=== PATIENT | male | born 1975 | race Caucasian/White ===

== ENCOUNTER 2019-07-15 16:06 | Emergency (ER) | payer MEDICAID ==
[~2019-07-15] VITALS: Ht 188 cm; Wt 90.7 kg
[2019-07-15] MEDS ORDERED: HYDROcodone/Acetamin 5/325 tab ORAL ONE (16:30)
--- NOTE | 2019-07-15 16:52 | Diagnostic Imaging Report ---
Indication: Left ankle pain Technique: 3 views of the left ankle Comparison: none Findings: No acute fractures. No dislocations. The joint spaces are preserved Impression: Negative
--- NOTE | 2019-07-15 16:53 | Emergency Room Report ---
History of Present Illness General Chief Complaint: Lower Extremity Injury Source: Patient Present Illness HPI 44-year-old male presents to the emergency department complaining of 10 out of 10 severity acute pain, swelling and tenderness that is localized to the lateral aspect of the left ankle and foot since yesterday. Patient reports mechanical trip and fall. He denies hitting his head or having a loss of consciousness. Patient describes hyperflexion and inversion mechanism. He reports he is been keeping it elevated and constant application of ice but continues to have some swelling. Patient states he is unable to bear weight. Patient reports paresthesias to the lateral aspect of the foot from mid wan down. Patient reports having normal sensation to the medial aspect of the left calf and foot. Denies open wounds or bleeding. Pt. denies bruising at this time. Allergies: Coded Allergies: No Known Allergies (Unverified , 07/15/19) COVID-19 Screening Contact w/high risk pt: No Recent Travel to affected area: No Experienced COVID-19 symptoms?: No COVID-19 Testing performed TACTICAL/MOBILE WATCH OFFICER: No Patient History Past Medical History: see triage record Past Surgical History: none Pertinent Family History: none Reviewed Nursing Documentation: PMH: Agreed; PSxH: Agreed Nursing Documentation-PMH Past Medical History: No History, Except For Review of Systems All Other Systems: negative except mentioned in HPI Physical Exam Vital Signs Date Time Temp Pulse Resp B/P (MAP) Pulse Ox O2 Delivery O2 Flow Rate FiO2 07/15/19 16:12 98.1 94 16 126/81 (96) 97 Room Air Sp02 EP Interpretation: reviewed, normal General Appearance: no apparent distress, alert, GCS 15, non-toxic Head: normocephalic, atraumatic Eyes: bilateral eye normal inspection, bilateral eye PERRL ENT: hearing grossly normal, normal voice Neck: full range of motion Respiratory: lungs clear, normal breath sounds, speaking full sentences Cardiovascular #1: regular rate, rhythm, normal capillary refill Cardiovascular #2: 2+ dorsalis pedis (R), 2+ dorsalis pedis (L) Musculoskeletal: tender - Lateral aspect of the left ankle, lateral dorsal left foot ttp & swelling. , swelling - lateral aspect of the left ankle/ dorsal proximal foot. , other - unable to bear weight. Neurologic: alert, motor strength/tone normal, oriented x3, sensory intact, responsive, speech normal, grossly normal, other - Pt. reports paresthesia sensations from mid left wan to the lateral 3-5th digits. Normal sensation medially. Psychiatric: judgement/insight normal Skin: no rash, normal color Medical Decision Making KELLI Attestation Dr. Samayoa is my supervising Physician whom patient management has been discussed with. Diagnostic Impression: Primary Impression: Moderate left ankle sprain Qualified Codes: S93.402A - Sprain of unspecified ligament of left ankle, initial encounter ER Course 44-year-old male presents to the emergency department complaining of 10 out of 10 severity acute pain, swelling and tenderness that is localized to the lateral aspect of the left ankle and foot since yesterday. Patient reports mechanical trip and fall. He denies hitting his head or having a loss of consciousness. Patient describes hyperflexion and inversion mechanism. He reports he is been keeping it elevated and constant application of ice but continues to have some swelling. Patient states he is unable to bear weight. Patient reports paresthesias to the lateral aspect of the foot from mid wan down. Patient reports having normal sensation to the medial aspect of the left calf and foot. Denies open wounds or bleeding. Pt. denies bruising at this time. Ddx considered but are not limited to Fracture, dislocation, contusion, Sprain/ Strain/Spasm, ligamental tear just to name a few. Vital signs: are WNL, pt. is afebrile H&PE are most consistent with musculoskeletal injury will perform imaging to r/ o fractures/dislocations. ORDERS: - X-ray Left Ankle and foot 3 views each - negative for fx, Dislocation, or significant soft tissue injury, per preliminary read in ED, and signed by KELLI Alex, my supervising physician has reviewed, and agrees with my interpretation. ED INTERVENTIONS: - [place] PO - Left Ankle short leg posterior splint applied by denture technician. Pt. remains neurovascularly intact. DISCHARGE: At this time pt. is stable for d/c to home. Will provide printed patient care instructions, and any necessary prescriptions. Care plan and follow up instructions have been discussed with the patient prior to discharge. Other X-Ray Diagnostic Results Other X-Ray Diagnostic Results #1: X-Ray ordered: left ankle # of Views/Limited Vs Complete: 3 View Indication: Pain EP Interpretation: Yes KELLI Xray: Interpretation reviewed, by supervising MD, and agrees with findings. Interpretation: no dislocation, no fractures, other - ST swelling Impression: Other - abnormal - ST swelling Electronically Signed by: Brittanie Alex PA-C Other X-Ray Diagnostic Results #2: X-Ray ordered: Left Foot # of Views/Limited Vs Complete: 3 View Indication: Pain EP Interpretation: Yes PA Xray: Interpretation reviewed, by supervising MD, and agrees with findings. Interpretation: no dislocation, no soft tissue swelling, no fractures Impression: No acute disease Electronically Signed by: Brittanie Alex PA-C Last Vital Signs Date Time Temp Pulse Resp B/P (MAP) Pulse Ox O2 Delivery O2 Flow Rate FiO2 07/15/19 16:12 98.1 94 16 126/81 (96) 97 Room Air Status: improved Disposition: HOME, SELF-CARE Condition: Stable Referrals: Orthopedic Urgent Care Patient Instructions: Ankle Sprain Additional Instructions: Take medications as directed. Follow up with an CORK PAINTER AND GRADER in 3-5 days, even if your symptoms have resolved. If symptoms persist MRI may be required at the discretion of your PCP or Ortho Specialist. --Please review list of primary care clinics, if you do not already have a primary care provider who can give you an Orthopedic Referral. Return sooner to ED if new symptoms occur, or current symptoms become worse. Do not drink alcohol, drive, or operate heavy machinery while taking [place] as this may cause drowsiness. - Please note that this Emergency Department Report was dictated using Snapflow[employer] scheduler technology software, occasionally this can lead to erroneous entry secondary to interpretation by the dictation equipment. Brittanie Alex Jul 15, 2019 16:53
--- NOTE | 2019-07-15 17:05 | Diagnostic Imaging Report ---
Indication: Left foot pain Technique: 3 views left foot Comparison: none Findings: No acute fractures. No dislocations. The joint spaces are preserved. Impression: Negative
[2019-07-15] MEDS ORDERED: IBUPROFEN600 M1 ORAL (17:18)
[2019-07-15] MEDS ORDERED: NORCO 5-325 TA1 EAC1 ORAL (17:18)
[2019-07-15 17:50] VITALS: BP 126/81
== END 2019-07-15 18:02 | disposition home or self-care (01) ==
LOC: EMR 16:40
DX: S93.402A Sprain of unspecified ligament of left ankle, initial encounter (principal); W01.0XXA Fall on same level from slipping, tripping and stumbling without subsequent striking against object, initial encounter; Y92.9 Unspecified place or not applicable
CPT/HCPCS: 29515; 73610; 73630; Z7502; 99284

== ENCOUNTER 2019-07-26 00:46 | Emergency (ER) | payer MEDICAID ==
[~2019-07-26] VITALS: Ht 185.4 cm; Wt 68.0 kg
[~2019-07-26 00:46] MED LIST: IBUPROFEN600 M1 ORAL; NORCO 5-325 TA1 EAC1 ORAL
--- NOTE | 2019-07-26 01:08 | Emergency Room Report ---
History of Present Illness General Chief Complaint: Lower Extremity Injury Source: Patient Present Illness HPI This is a 44-year-old male with no significant past medical history. He presents with chief complaint of left ankle and foot pain. He injured himself about 2 weeks ago. He was moving a heavy furniture and a dog ran next to him. He tried to step out of the way and ended up stepping into a rain gutter. He said he bent his foot and twisted it. He said it swelled up significantly. He was seen here 10 days ago and had x-ray that were negative. He was placed in a splint and put on crutches. Since then he said the swelling is still there. Is now a lot of bruising. Still very painful. Cannot bear weight. Pain is 8 out of 10. Worse with walking. Better with rest. Also with tenderness over the Achilles tendon. Allergies: Coded Allergies: No Known Allergies (Unverified , 07/15/19) COVID-19 Screening Contact w/high risk pt: No Recent Travel to affected area: No Experienced COVID-19 symptoms?: No COVID-19 Testing performed GLASS SANDER: No Patient History Past Medical History: see triage record, old chart reviewed Past Surgical History: none Pertinent Family History: other Social History: Denies: smoking Immunizations: other Reviewed Nursing Documentation: PMH: Agreed; PSxH: Agreed Review of Systems Eye: Denies: eye pain, blurred vision ENT: Denies: ear pain, nose congestion, throat swelling Respiratory: Denies: cough, shortness of breath Cardiovascular: Denies: chest pain, palpitations Gastrointestinal: Denies: abdominal pain, diarrhea, nausea, vomiting Musculoskeletal: Reports: joint pain, muscle pain; Denies: back pain Skin: Denies: rash Neurological: Denies: headache, numbness Endocrine: Denies: increased thirst, increased urine Hematologic/Lymphatic: Denies: easy bruising All Other Systems: negative except mentioned in HPI Physical Exam Vital Signs Date Time Temp Pulse Resp B/P (MAP) Pulse Ox O2 Delivery O2 Flow Rate FiO2 07/26/19 00:56 98.2 98 16 140/94 (109) 94 Room Air Vitals with high blood pressure Sp02 EP Interpretation: reviewed, normal General Appearance: well appearing, no apparent distress, alert Head: normocephalic, atraumatic Eyes: bilateral eye PERRL, bilateral eye EOMI ENT: hearing grossly normal, normal pharynx Neck: full range of motion, supple, no meningismus Respiratory: chest non-tender, lungs clear, normal breath sounds Cardiovascular #1: regular rate, rhythm, no murmur Gastrointestinal: normal bowel sounds, non tender, no mass, no organomegaly, no bruit, non-distended Musculoskeletal: back normal, other - Left lower extremity: He has ecchymosis to the Achilles tendon. Tenderness over that area. Decreased function with dorsiflexion with palpation of the calf. He has ecchymosis to the lateral aspect of the ankle. Also with ecchymosis to the toes. Dorsalis pedis pulses normal. Psychiatric: mood/affect normal Procedures Splinting Splinting : Consent: Verbal Location: Left lower extremity Hand-Made Type: plaster Splint: poserior short Pre-Proc Neuro Vasc Exam: normal Post-Proc Neuro Vasc Exam: normal Patient Tolerated: Well Complications: None Medical Decision Making Diagnostic Impression: Primary Impression: Avulsion fracture of lateral malleolus Qualified Codes: S82.62XA - Displaced fracture of lateral malleolus of left fibula, initial encounter for closed fracture Additional Impression: Lisfranc fracture ER Course This patient presents with injury to his ankle and foot. X-ray initially was negative but CT scan show avulsion fracture of the lateral malleolus. He may also have a Lisfranc fracture. Patient splinted and put on crutches. Told patient that he will need MRI. CT/MRI/US Diagnostic Results CT/MRI/US Diagnostic Results #1: Imaging Test Ordered: CT ankle, left Impression Read by radiologist. Avulsion injury of the anterior and inferior aspect of the lateral malleolus. CT/MRI/US Diagnostic Results #2: Imaging Test Ordered: CT foot, left Impression Read by radiologist. No acute fracture of the foot. However there is a small bone fragment between the first and second metatarsal. Cannot exclude Lisfranc fracture. Last Vital Signs Date Time Temp Pulse Resp B/P (MAP) Pulse Ox O2 Delivery O2 Flow Rate FiO2 07/26/19 00:56 98.2 98 16 140/94 (109) 94 Room Air Status: improved Disposition: HOME, SELF-CARE Condition: Improved Referrals: [facility],REFERRING (PCP) Additional Instructions: Elevate your leg. Ice pack to the area. Nonweightbearing. Use your crutches. Follow-up with your doctor within a week. You will need an MRI of the ankle and foot. You may need referral to see orthopedic doctor. Return if worse. Ehsan Cabral MD Jul 26, 2019 01:08
--- NOTE | 2019-07-26 01:12 | NUR ---
Nurse Note: Pt arrived with crutches d/t LT foot/ankle pain, swelling, discoloration. Pt stated his inital injury occured 2 weeks ago, got splinted. Pt stated the splint broke and pt fell on LT ankle. Ankle is purple in color; able to move toes with major discomfort. Cool on touch.
--- NOTE | 2019-07-26 02:17 | NUR ---
Nurse Note: Pt back from CT; awaiting results. Splint applied on LT leg. Pt able to move toes,cap refill less than 3 sec. Reinforced R.I.C.E. All safety measures met; will continue to monitor.
--- NOTE | 2019-07-26 02:25 | Diagnostic Imaging Report ---
EXAM: CT Left Lower Extremity Without Intravenous Contrast, Ankle CLINICAL HISTORY: Injury. Left ankle pain. TECHNIQUE: Axial computed tomography images of the left ankle without intravenous contrast. CTDI is 3.30 mGy and DLP is 101.30 mGy-cm. One or more of the following dose reduction techniques were used: automated exposure control, adjustment of the mA and/or kV according to patient size, use of iterative reconstruction technique. COMPARISON: 07/15/2019. FINDINGS: Bones/joints: Evaluation of the distal left tibia reveals a 0.8 x 0.3 x 0.4 cm avulsion injury of indeterminate age. The ankle mortise is preserved. Tiny subcentimeter calcific densities are noted anterior inferior to the lateral malleolus possibly representing are tiny avulsion injuries of indeterminate age. Alternatively, findings may be a manifestation of ligamentous or tendinous injury. There is suggestion of a 0.9 cm area of osteochondrosis dissecans within the calendar and laterally. A 2.1 cm bone cyst is noted anteriorly within the calcaneus. The calcaneus is otherwise unremarkable. Base of the left fifth metatarsal is unremarkable. Mild osteoarthritic changes in the left mid foot are noted. No additional acute fracture is detected. No dislocation. Soft tissues: Muscle bundles are unremarkable. There is significant soft tissue swelling about the lateral malleolus osteotomies of bruising or edema. IMPRESSION: 1. 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 2. Soft tissue sling about the lateral malleolus. 3. Tiny evulsion injuries are suggested anteriorly and inferiorly about the lateral malleolus. 4. Tiny avulsion injury of the anterior tibia. 5. Given these findings, magnetic resonance imaging of the left ankle joint is highly advised to follow, particularly for further evaluation of the pelvic girdle as well as for assessment for tendinous or ligamentous injuries about the lateral malleolus. 6. Simple cyst within the calcaneus.
--- NOTE | 2019-07-26 02:30 | Diagnostic Imaging Report ---
EXAM: CT Left Lower Extremity Without Intravenous Contrast, Foot CLINICAL HISTORY: TRAUMA TECHNIQUE: Axial computed tomography images of the left foot without intravenous contrast. CTDI is 3 mGy and DLP is 112 mGy-cm. One or more of the following dose reduction techniques were used: automated exposure control, adjustment of the mA and/or kV according to patient size, use of iterative reconstruction technique. COMPARISON: 07/15/2019 FINDINGS: Bones/joints: No acute fracture. No dislocation. Nondisplaced lucent line through the anterior inferior tibia involving the joint. 2 cm calcaneal cyst. Small bone fragment between the base of the first and second metatarsal. Soft tissues: No radiopaque foreign body. IMPRESSION: 1. No acute fracture of the foot. However there is a small bone fragment between the first and second metatarsal (series 4 image 55), cannot exclude Lisfranc injury. Recommend MRI of the foot. 2. Old nondisplaced fracture through the anterior inferior tibia at the joint. 3. 2 cm calcaneal cyst. <MYCVCSECTION> Communications: 07/26/19 02:39 Call Doctor Ehsan Cabral MD aware of findings. Declined consult with Radiologist on 07/25 02:31 (-07:00)
[2019-07-26 02:55] VITALS: BP 140/94
--- NOTE | 2019-07-26 02:55 | NUR ---
ED Nurse Note: Pt cleared by health care Provider for discharge. DC instructions/prescription was given and explained to pt and verbalized understanding of teachings. Instructed pt to follow up with primary care physican / orthopedics for follow up care. All medical deviecs such as ID band removed. Pt is AAO x4, ambulatory with crutch and left with all personal belongings. Crutch teaching reinforced, RICE taught.
[2019-07-27] MEDS ORDERED: IBU800 MG PO (15:31)
[2019-07-27] MEDS ORDERED: TRAMADOL HCL50 MG ORAL ×2 (15:31)
== END 2019-07-26 02:55 | disposition home or self-care (01) ==
LOC: EMR 01:03
DX: S82.62XA Displaced fracture of lateral malleolus of left fibula, initial encounter for closed fracture (principal); M85.672 Other cyst of bone, left ankle and foot; X50.1XXA Overexertion from prolonged static or awkward postures, initial encounter; Y92.9 Unspecified place or not applicable
CPT/HCPCS: 29515; 73700; Z7502; 99284

== ENCOUNTER 2019-07-27 15:01 | Emergency (ER) | payer MEDICAID ==
[~2019-07-27] VITALS: Ht 188 cm; Wt 74.8 kg
[2019-07-27 15:07] VITALS: BP 164/111
--- NOTE | 2019-07-27 15:22 | NUR ---
ED Nurse Note:PT. HAD SPLINT PLACED IM er YESTERDAY AND HE CAME BACK DUE TO PAIN
--- NOTE | 2019-07-27 15:30 | Emergency Room Report ---
History of Present Illness General Chief Complaint: Lower Extremity Injury Source: Patient Present Illness HPI 44-year-old male with history of left lateral malleolus fracture x2 weeks who was seen [facility] twice here requesting MRI of left ankle. Patient reports that he was seen last night by Dr. Cabral and was told to come back to the ED during daytime for MRI. However in the note indicated patient was recommended to follow primary doctor for MRI. Patient reports that primary doctor visit is not until September 06. Patient is wearing a splint and reports that the foot has been blue and numb for the past 2 weeks with tingling. However no ecchymosis noted and patient is able to move toes. Patient has not been taking any pain medication other than ibuprofen at this time. Reports that he does not like [place] as it makes him drowsy. Denies any fall or injury. Denies lower back pain or pain radiation. Has been ambulating with crutches. Allergies: Coded Allergies: No Known Allergies (Unverified , 07/15/19) COVID-19 Screening Contact w/high risk pt: No Recent Travel to affected area: No Experienced COVID-19 symptoms?: No COVID-19 Testing performed MICROGRAPHICS SERVICES SUPERVISOR: No Patient History Past Medical History: see triage record Past Surgical History: none Pertinent Family History: none Immunizations: UTD Reviewed Nursing Documentation: PMH: Agreed; PSxH: Agreed Review of Systems All Other Systems: negative except mentioned in HPI Physical Exam Vital Signs Date Time Temp Pulse Resp B/P (MAP) Pulse Ox O2 Delivery O2 Flow Rate FiO2 07/27/19 15:07 98.2 101 18 164/111 (128) 98 Room Air Sp02 EP Interpretation: reviewed, normal General Appearance: no apparent distress, alert, GCS 15, non-toxic Head: normocephalic, atraumatic Eyes: bilateral eye normal inspection, bilateral eye PERRL ENT: hearing grossly normal, normal pharynx, no angioedema, normal voice Neck: full range of motion, supple, thyroid normal, no meningismus, no bony tend, supple/symm/no masses Respiratory: chest non-tender, lungs clear, normal breath sounds, no rhonchi, no respiratory distress, no retraction, no accessory muscle use, no wheezing, speaking full sentences Cardiovascular #1: regular rate, rhythm, no edema Cardiovascular #2: 2+ dorsalis pedis (R), 2+ dorsalis pedis (L) Gastrointestinal: soft Genitourinary: no CVA tenderness Musculoskeletal: normal range of motion, digits/nails normal, no calf tenderness, pelvis stable, gait/station normal, no lower extremity edema, tender - Left lateral malleolus, swelling - Left lateral malleolus Neurologic: alert, motor strength/tone normal, oriented x3, sensory intact, responsive, speech normal Psychiatric: judgement/insight normal, memory normal, mood/affect normal, no suicidal/homicidal ideation Skin: no rash Lymphatic: no adenopathy Procedures Splinting Splinting : Consent: Verbal Location: left ankle Splint: poserior short Pre-Proc Neuro Vasc Exam: normal Post-Proc Neuro Vasc Exam: normal Patient Tolerated: Well Complications: None Medical Decision Making PA Attestation All my diagnosis and treatment plans were reviewed ad discussed with my supervising physician Dr. Delatorre Diagnostic Impression: Primary Impression: Lateral malleolar fracture ER Course 44-year-old male with history of left lateral malleolus fracture x2 weeks who was seen [facility] twice here requesting MRI of left ankle. Patient reports that he was seen last night by Dr. Cabral and was told to come back to the ED during daytime for MRI. However in the note indicated patient was recommended to follow primary doctor for MRI. Patient reports that primary doctor visit is not until September 06. Patient is wearing a splint and reports that the foot has been blue and numb for the past 2 weeks with tingling. However no ecchymosis noted and patient is able to move toes. Patient has not been taking any pain medication other than ibuprofen at this time. Reports that he does not like [place] as it makes him drowsy. Denies any fall or injury. Denies lower back pain or pain radiation. Has been ambulating with crutches. Ddx considered but are not limited to: Lumbar spine sprain, strain, fracture, contusion, neuropathy Vital signs: are WNL, pt. is afebrile H&PE are most consistent with: Left lateral malleolus fracture ORDERS: Tramadol, ibuprofen ER intervention: Taking of the old splint and reapplying a new splint DISCHARGE: At this time pt. is stable for d/c to home. Will provide printed patient care instructions, and any necessary prescriptions. Care plan and follow up instructions have been discussed with the patient prior to discharge. Gave information to orthopedic urgent care as well as [facility] as patient has straight [facility] patient to follow-up with alignment specialist at this time no emergent MRI needed patient has been having symptoms for 2 months and that does not change the course of treatment needs to be seen by alignment specialist for possible surgery versus casting purposes. Patient take tramadol at nighttime. If worsening symptoms return to the emergency room. Patient to also ambulate with an ankle brace over his splint Last Vital Signs Date Time Temp Pulse Resp B/P (MAP) Pulse Ox O2 Delivery O2 Flow Rate FiO2 07/27/19 15:07 98.2 101 18 164/111 (128) 98 Room Air Disposition: HOME, SELF-CARE Condition: Stable Scripts Ibuprofen (Ibu) 800 Mg Tablet 800 MG PO TID, #30 TAB Prov: Timothy Beaver 07/27/19 Tramadol Hcl* (ULTRAM*) 50 Mg Tablet 50 MG ORAL Q6H PRN for For Pain, #10 TAB 0 Refills Prov: Timothy Beaver 07/27/19 Tramadol Hcl* (ULTRAM*) 50 Mg Tablet 50 MG ORAL Q8HR PRN for For Pain for 4 Days, #12 TAB 0 Refills Prov: Timothy Beaver 07/27/19 Patient Instructions: Ankle Fracture, [id number] Additional Instructions: Take medication as directed, follow-up with your primary care provider, you need to be seen by alignment specialist that this is chronic now and needs further evaluation by a specialist. Right ankle posterior if worsening symptoms return to the emergency room. MRI can be done as outpatient to be requested by your primary doctor or by alignment specialist Timothy Beaver Jul 27, 2019 15:30
[2019-07-27] MEDS ORDERED: TRAMADOL HCL50 MG ORAL ×2 (15:31)
[2019-07-27] MEDS ORDERED: IBU800 MG PO (15:31)
--- NOTE | 2019-07-27 15:55 | NUR ---
ED Nurse Note:left lower leg splint was changed for pt. Pt cleared by health care Provider for discharge. DC instructions/prescription was given and explained to pt and verbalized understanding of teachings. All medical deviecs such as ID band removed. Pt is AAO x4, ambulatory and left with all personal belongings.
--- NOTE | 2019-07-27 16:00 | NUR ---
Pt was found in room sitting high fowlers position, and under the direction of ERMD and PA a short leg posterior splint has been applied on pts left lower ext. and PMS has been reassessed with no complications
== END 2019-07-27 16:00 | disposition home or self-care (01) ==
LOC: EMR 15:30
DX: S82.62XA Displaced fracture of lateral malleolus of left fibula, initial encounter for closed fracture (principal); X58.XXXA Exposure to other specified factors, initial encounter; Y92.9 Unspecified place or not applicable
CPT/HCPCS: 29515; Z7502; 99283